=== PATIENT | male | born 1970 | race Caucasian/White ===

== ENCOUNTER 2020-02-03 19:11 | Emergency (ER) | payer SELFPAY ==
[~2020-02-03] VITALS: Ht 185.4 cm; Wt 102.9 kg
[2020-02-03 19:17] VITALS: BP 136/84
--- NOTE | 2020-02-03 19:23 | NUR ---
PT STARTED TO MAKE AGGRESSIVE REMARKS TOWARDS RN AND REPORTING THAT HIM AND RN WOULD HAVE A PROBLEM BECAUSE IF HE WANTS TO YELL PROFANITY HE WOULD, PT ASKED TO PLEASE CONTROL OUTBURTS. PT REFUSED AND CONTINUED TO MAKE THREATS TO THIS RN. PT HAS NO MEDICAL COMPLAINT AND FOR SAFETY OF STAFF AND PT REFUSING HELP PT ESCORTED OFF PREMESIS.
--- NOTE | 2020-02-03 19:26 | NUR ---
LATE ENTRY FOR 1919. WHEN THIS TECH CALLED THIS PT FOR TRIAGE, PT WAS IN AN ARGUING WITH ANOTHER PT. THIS PT STATED "YOU DON'T WANT NONE OF THIS, I PROMISE YOU" TO THE OTHER PT. PT WAS THEN BROUGHT INTO TRIAGE ROOM FOR TRIAGE.
== END 2020-02-03 21:47 | disposition left against medical advice (07) ==
LOC: ED 20:00
DX: M79.671 Pain in right foot (principal); M79.672 Pain in left foot; Z53.21 Procedure and treatment not carried out due to patient leaving prior to being seen by health care provider